=== PATIENT | female | born 1995 | race Two or more races ===

== ENCOUNTER 2017-04-21 21:54 | Emergency (ER) | payer BC ==
[~2017-04-21] VITALS: Ht 157.5 cm; Wt 49.9 kg
[2017-04-21] MEDS ORDERED: IBUPROFEN600 MG ORAL (22:48)
[2017-04-21] MEDS ORDERED: ROBAXIN500 MG PO (22:48)
[2017-04-21 22:53] VITALS: BP 112/66
--- NOTE | 2017-04-22 01:38 | Emergency Room Report ---
History of Present Illness General Chief Complaint: Lower Extremity Injury Source: Patient Present Illness HPI 21-year-old female walks in with right thigh muscle spasm and pain to medial aspect of right knee After doing full extension and stretch during dancing 3 days ago Was taking motrin and "a muscle relaxer" with improvement Denies pain with walking No previous inury Allergies: Coded Allergies: No Known Allergies (Unverified , 04/21/17) Patient History Past Medical History: none Past Surgical History: none Pertinent Family History: none Social History: Denies: smoking, alcohol use, drug use Last Menstrual Period: 04/15/17` Now: No Immunizations: UTD Reviewed Nursing Documentation: PMH: Agreed, PSxH: Agreed Nursing Documentation-PMH Past Medical History: No Stated History Review of Systems All Other Systems: negative except mentioned in HPI Physical Exam Vital Signs Date Time Temp Pulse Resp B/P (MAP) Pulse Ox O2 Delivery O2 Flow Rate FiO2 04/21/17 22:07 98.2 85 14 120/78 99 Room Air Sp02 EP Interpretation: reviewed, normal General Appearance: normal inspection, well appearing, no apparent distress, alert, GCS 15, non-toxic Head: normocephalic, atraumatic Eyes: bilateral eye PERRL, bilateral eye EOMI ENT: normal ENT inspection, hearing grossly normal, normal voice Neck: normal inspection, full range of motion, supple, no bony tend Respiratory: normal inspection, lungs clear, normal breath sounds, no respiratory distress, no retraction, no wheezing Cardiovascular #1: regular rate, rhythm, no edema Gastrointestinal: normal inspection, normal bowel sounds, non tender, soft, no guarding, no hernia Genitourinary: no CVA tenderness Musculoskeletal: normal inspection, back normal, normal range of motion, Katlyn' s Sign negative, other - right knee: no joint laxity. Mild tenderness to cord on dorsal aspect of right thigh. Neurologic: normal inspection, alert, oriented x3, responsive, clinical nursing instructor III-XII nml as tested, speech normal Psychiatric: normal inspection, judgement/insight normal, mood/affect normal Skin: normal inspection, normal color, no rash Medical Decision Making Diagnostic Impression: Primary Impression: Quadriceps strain Qualified Codes: S76.111A - Strain of right quadriceps muscle, fascia and tendon, initial encounter ER Course 21-year-old female with likely right quadriceps strain No knee joint laxity on exam Unlikely fracture of patella or tib-fib or femur given mechanism With spasm, likely strain of quad Advised RICE, motrin, ICE PMD followup for MRI if no improvement ER course: Patient has remained stable during ED stay. Patient is to be discharged to home. Prescriptions given are motrin Patient is instructed to follow up with their primary care doctor within 5 days. Strict return precautions discussed with patient such as fever, chills, worsening/severe pain, nausea, vomiting, which may indicate severe illness. Patient verbalizes understanding and agrees with plan. Please note that this Emergency Department Report was dictated using [employer] technology software, occasionally this can lead to erroneous entry secondary to interpretation by the dictation equipment Last Vital Signs Date Time Temp Pulse Resp B/P (MAP) Pulse Ox O2 Delivery O2 Flow Rate FiO2 04/21/17 22:53 64 16 112/66 99 04/21/17 22:07 98.2 Room Air Status: improved Disposition: HOME, SELF-CARE Condition: Improved Scripts Methocarbamol* (ROBAXIN*) 500 Mg Tablet 500 MG PO TID for 7 Days, #30 TAB 0 Refills Prov: SUE HAMILTON M.D. 04/21/17 Ibuprofen* (MOTRIN*) 600 Mg Tablet 600 MG ORAL THREE TIMES A DAY for 7 Days, #30 TAB 0 Refills Prov: SUE HAMILTON M.D. 04/21/17 Referrals: NOT CHOSEN [facility]/,REFERRING (PCP) Patient Instructions: Quadriceps Contusion, [id number] Additional Instructions: - Take motrin with robaxin up to 3x a day with food as needed for pain - Apply ice to quadriceps 3-4x a day - continued physical activity and dancing as tolerated - If no improvement in pain, please followup with your primary doctor for outpatient MRI and orthopedics followup SUE HAMILTON M.D. Apr 22, 2017 01:38
== END 2017-04-21 22:53 | disposition home or self-care (01) ==
LOC: EMR 22:15
DX: S76.111A Strain of right quadriceps muscle, fascia and tendon, initial encounter (principal); X50.9XXA Other and unspecified overexertion or strenuous movements or postures, initial encounter; Y93.41 Activity, dancing; Y92.009 Unspecified place in unspecified non-institutional (private) residence as the place of occurrence of the external cause
CPT/HCPCS: 99283

== ENCOUNTER 2018-11-13 04:39 | Emergency (ER) | payer BC ==
[~2018-11-13] VITALS: Ht 157.5 cm; Wt 49.0 kg
[~2018-11-13 04:39] MED LIST: IBUPROFEN600 MG ORAL; ROBAXIN500 MG PO
[2018-11-13 04:56] VITALS: BP 107/64
--- NOTE | 2018-11-13 04:56 | NUR ---
ED Nurse Note: Pt arrived ED from home, c/o coughing and congested for 3 days and getting wrose today. Pt is a/o x 4, having dry coughing, O2 sat 95% on room air and Hr 117 at this time. Waiting for orderes.
--- NOTE | 2018-11-13 05:12 | Emergency Room Report ---
History of Present Illness General Chief Complaint: Dyspnea/Respdistress Source: Patient Present Illness HPI This a 23-year-old female with history of asthma and allergies. She presents with chief complaint of shortness of breath and wheezing. Onset for last couple days. Inhaler. She used [id number] Primatene Mist and it helps some. Also the apartment complex is cut the grass of the scars allergy to flareup. Worse with inspiration. Better with rest. No nausea no vomiting. No fever chills. Coughing is nonproductive nature. Allergies: Coded Allergies: Dried Fruit (Verified Allergy, Unknown, 11/13/18) ALL FRUITS Patient History Past Medical History: see triage record, old chart reviewed, asthma Past Surgical History: none Pertinent Family History: none Social History: Denies: smoking Last Menstrual Period: 10-18-2018 Now: No Immunizations: other Reviewed Nursing Documentation: PMH: Agreed; PSxH: Agreed Nursing Documentation-PMH Past Medical History: No History, Except For Hx Asthma: Yes Review of Systems Eye: Denies: eye pain, blurred vision ENT: Denies: ear pain, nose congestion, throat swelling Respiratory: Reports: cough, shortness of breath, wheezing Cardiovascular: Denies: chest pain, palpitations Gastrointestinal: Denies: abdominal pain, diarrhea, nausea, vomiting Musculoskeletal: Denies: back pain, joint pain Skin: Denies: rash Neurological: Denies: headache, numbness Endocrine: Denies: increased thirst, increased urine Hematologic/Lymphatic: Denies: easy bruising All Other Systems: negative except mentioned in HPI Physical Exam Vital Signs Date Time Temp Pulse Resp B/P (MAP) Pulse Ox O2 Delivery O2 Flow Rate FiO2 11/13/18 04:42 98.2 112 18 109/63 (78) 91 Room Air Vitals with hypoxia. Repeat pulse ox is 95% on room air Sp02 EP Interpretation: reviewed, normal General Appearance: well appearing, no apparent distress, alert Head: normocephalic, atraumatic Eyes: bilateral eye PERRL, bilateral eye EOMI ENT: hearing grossly normal, normal pharynx Neck: full range of motion, supple, no meningismus Respiratory: chest non-tender, decreased breath sounds, accessory muscle use, wheezing Cardiovascular #1: regular rate, rhythm, no murmur Gastrointestinal: normal bowel sounds, non tender, no mass, no organomegaly, no bruit, non-distended Musculoskeletal: back normal, gait/station normal, normal range of motion Psychiatric: mood/affect normal Medical Decision Making Diagnostic Impression: Primary Impression: Asthma with exacerbation Qualified Codes: J45.21 - Mild intermittent asthma with (acute) exacerbation ER Course Patient presents with asthma exacerbation. Better after breathing treatment. Steroid given here. Will discharge home. Last Vital Signs Date Time Temp Pulse Resp B/P (MAP) Pulse Ox O2 Delivery O2 Flow Rate FiO2 11/13/18 04:56 117 18 Room Air 11/13/18 04:56 98.2 107/64 95 Status: improved Disposition: HOME, SELF-CARE Condition: Stable Scripts Prednisone* (PREDNISONE*) 20 Mg Tablet 40 MG ORAL DAILY, #8 TAB Prov: Kavin Holden MD 11/13/18 Albuterol Sulfate* (ALBUTEROL SULFATE MDI*) 8.5 Gm Hfa.aer.ad 2 PUFF INH Q4H PRN for cough/wheezing, #1 EA 0 Refills Prov: Kavin Holden MD 11/13/18 Additional Instructions: Follow-up with your doctor in 3 to 5 days for recheck. Return if worse. Kavin Holden MD Nov 13, 2018 05:12
--- NOTE | 2018-11-13 05:13 | NUR ---
ED Nurse Note: Meds given as ordered.
[2018-11-13] MEDS ORDERED: Albuterol ud Inhalation HHN ONE ×3 (05:15→06:30)
[2018-11-13] MEDS ORDERED: Ipratropium 0.02% Inh Soln 2.5ml UD HHN ONE (05:15)
--- NOTE | 2018-11-13 05:19 | NUR ---
ED Nurse Note: Breathing treatment given by RT at bedside.
[2018-11-13] MEDS ORDERED: PREDNISONE20 MG ORAL (05:59)
[2018-11-13] MEDS ORDERED: ALBUTEROL SULF8.5 GM INH (05:59)
--- NOTE | 2018-11-13 06:04 | NUR ---
ED Nurse Note: The second dose of breathing treatment given by RT at bedside.
--- NOTE | 2018-11-13 06:31 | NUR ---
ED Nurse Note: The third dose of breathing treatment given by RT at bedside.
[2018-11-13] MEDS ORDERED: ZYRTEC-D TABLE1 EACH ORAL (06:55)
[2018-11-13 07:08] VITALS: BP 104/62
--- NOTE | 2018-11-13 07:08 | NUR ---
ER DISCHARGE NOTE: Patient is cleared to be discharged per Dr. Holden. Pt is aox4 on room air with stable vital signs. Pt was given dc and prescription instructions and was able to verbalize understanding. Pt's ID band and iv site removed without complications. Pt is able to ambulate with steady gait and took all belongings.
== END 2018-11-13 07:08 | disposition home or self-care (01) ==
LOC: EMR 05:45
DX: J45.21 Mild intermittent asthma with (acute) exacerbation (principal); Z91.018 Allergy to other foods
CPT/HCPCS: 94640; 94664; 99284